=== PATIENT | male | born 1995 | race Caucasian/White ===

== ENCOUNTER 2020-01-10 08:25 | Outpatient (CLI) | payer BC | END 2020-01-10 23:59 | disposition home or self-care (01) | LOC: CARD 08:25 | PROVIDERS: ATTEND Family Medicine | DX: Z02.9 Encounter for administrative examinations, unspecified (principal) ==

== ENCOUNTER 2020-01-10 09:29 | Outpatient (CLI) | payer BC ==
[2020-01-10] MEDS ORDERED: OMNIPAQUE 350 MG/ML, 150 ML BOTTLE ONE (10:12)
== END 2020-01-10 23:59 | disposition home or self-care (01) ==
LOC: RAD 09:29
PROVIDERS: ATTEND Family Medicine
DX: R06.02 Shortness of breath (principal); R22.1 Localized swelling, mass and lump, neck
CPT/HCPCS: 70491; 71260; 94060; Q9967

== ENCOUNTER → 2020-05-17 | Outpatient (CLI) | payer BC ==
[~2020-05-17] MED LIST: OMNIPAQUE 350 MG/ML, 100ML BOTTLE ONE
== END | disposition home or self-care (01) ==
LOC: CFH 14:03
PROVIDERS: ATTEND Family Medicine
DX: K11.5 Sialolithiasis (principal); R22.1 Localized swelling, mass and lump, neck
CPT/HCPCS: 70491; Q9967